=== PATIENT | male | born 1945 | race Caucasian/White ===

== ENCOUNTER 2019-03-13 11:30 | Inpatient (IN) | payer MEDICARE, BC ==
[2019-03-14] MEDS ORDERED: Glycopyrrolate 0.2 MG/ML 5 ML SYRINGE ONE (09:42)
[2019-03-14] MEDS ORDERED: PROPOFOL 200 MG/20 ML VIAL ONE (09:42)
[2019-03-14] MEDS ORDERED: Lidocaine 1% PF 5 ML VIAL ONE (09:42)
[2019-03-14] MEDS ORDERED: Rocuronium Bromide 10 MG/ML (10ML VIAL) ONE (09:42)
[2019-03-14] MEDS ORDERED: ceFAZolin Sodium (SDC) 2 GM/100 ML BAG ONE (10:57)
[2019-03-14] MEDS ORDERED: Fentanyl 100 MCG/2 ML VIAL ONE ×3 (14:02→15:29)
--- NOTE | 2019-03-14 14:34 | RAD ---
INTRAOPERATIVE FLUOROSCOPIC IMAGES LEFT HUMERUS: History: ORIF left humerus. Comparison: None. Fluoroscopy: Total fluoroscopy time is 82.8 seconds with total does of 3.54 mGy*cm^2. FINDINGS\IMPRESSION: Two intraoperative fluoroscopic images of the left humerus are submitted for interpretation. There ar e medial and lateral plates with multiple screws transfixing a comminuted fracture involving the dist al humerus. Subcutaneous emphysema is seen about the elbow. Correlation with intraoperative findings is recommended. POS: [facility]
[2019-03-14] MEDS ORDERED: Milk Of Magnesia 30 ML UDCUP PO PRN (14:51)
[2019-03-14] MEDS ORDERED: HYDROcodone/Acetaminophen 5/325 mg Tablet PO PRN ×2 (14:51)
[2019-03-14] MEDS ORDERED: TETANUS AND DIPHTHERIA TOX/PF 0.5 ML DISP.SYRIN IM SCH (14:51)
[2019-03-14] MEDS ORDERED: Promethazine HCl 25 MG/ML VIAL IM PRN (14:51)
[2019-03-14] MEDS ORDERED: HYDROcodone/Acetaminophen 10/325 mg Tablet PO PRN ×2 (14:51)
[2019-03-14] MEDS ORDERED: Bisacodyl 10 MG SUPP PR PRN (14:51)
[2019-03-14] MEDS ORDERED: Ondansetron PF 4 MG/2 ML Vial IV PRN (14:51)
[2019-03-14] MEDS ORDERED: Fentanyl 100 MCG/2 ML VIAL SLOW IVP PRN (14:51)
[2019-03-14] MEDS ORDERED: traMADol HCl 50 MG TAB PO PRN ×2 (14:51)
[2019-03-14] MEDS ORDERED: Promethazine HCl 25 MG/ML VIAL ONE (15:20)
[2019-03-14] MEDS ORDERED: Ketorolac Tromethamine 30 MG/ML VIAL ONE (15:51)
[2019-03-14] MEDS ORDERED: Labetalol HCl 100 MG/20 ML VIAL ONE (16:23)
[2019-03-14] MEDS ORDERED: hydrALAZINE 20 MG/ML VIAL ONE (16:41)
[2019-03-14] MEDS ORDERED: hydrALAZINE 20 MG/ML VIAL SLOW IVP PRN (17:32)
[2019-03-14] MEDS ORDERED: Labetalol HCl 100 MG/20 ML VIAL IVPB SCH (17:45)
[2019-03-14] MEDS: CEFAZOLIN 2 GM in Premix Bag 1 BAG IVPB SCH (18:31)
[2019-03-14] MEDS: Ketorolac Tromethamine 30 MG/ML VIAL IVP SCH ×2 (18:31→18:33)
[2019-03-14] MEDS: Sodium Chloride 0.9% 1,000 ML IV SCH (19:00)
[2019-03-14 20:14] VITALS: BMI 27.2
[2019-03-14] MEDS: Lisinopril 20 MG TAB PO SCH (22:14)
[2019-03-14] MEDS: Tamsulosin HCl 0.4 MG CAP PO SCH (22:15)
[2019-03-14] MEDS: Donepezil HCl 10 MG TAB PO SCH (22:15)
[2019-03-14] MEDS: Doxycycline 100 MG CAP PO SCH (22:15)
[2019-03-14] MEDS: clonazePAM 1 MG TAB PO SCH (22:16)
[2019-03-14] MEDS: Rosuvastatin 5 MG TAB PO SCH (22:16)
[2019-03-14] MEDS: Rasagiline Mesylate 0.5 MG TAB PO SCH (22:16)
[2019-03-14] MEDS: cycloSPORINE 0.05% Ophthalmic Droperette EA EYE SCH (22:17)
[2019-03-14] MEDS: Insulin Glargine 10 UNITS in Pre-Filled Syringe 1 EACH SC SCH (22:27)
[2019-03-14] MEDS: Carbidopa/Levodopa 25-250 mg Tablet PO SCH (22:51)
[2019-03-14] MEDS: sulfaSALAzine 500 MG TAB PO SCH (22:51)
[2019-03-15] MEDS: Ketorolac Tromethamine 30 MG/ML VIAL IVP SCH ×4 (03:03→17:59)
[2019-03-15] MEDS: CEFAZOLIN 2 GM in Premix Bag 1 BAG IVPB SCH ×3 (03:35→18:00)
[2019-03-15 06:08] LABS: #Lymphocytes 0.7 thou/uL (1.20-3.40); #Monocytes 1.5 thou/uL (0.11-0.59); #Neutrophils 8.4 thou/uL (1.40-6.50); %Basophils 0.1 % (0.0-1.0); %Eosinophils 0.2 % (0.0-10.0); %Lymphocytes 6.5 % (21.0-51.0); %Monocytes 14.4 % (0.0-10.0); %Neutrophils 78.8 % (42.0-75.0); Hemoglobin 11.2 g/dL (14.0-18.0); Mean Corpuscular HGB CONC 32.1 g/dL (32.0-36.0); Mean Corpuscular Hemoglobin 32.6 pg (27.0-31.0); Mean Platelet Volume 6.9 fL (7.4-10.4); Platelet Count 276 thou/uL (130-400); RBC Distribution Width 11.9 % (11.5-14.5); Red Blood Cell (RBC) Count 3.43 mill/uL (4.70-6.10); White Blood Cell (WBC) Count 10.7 thou/uL (4.8-10.8)
[2019-03-15 06:30] LABS: ALT (SGPT) Less than 7 U/L (8-55); AST (SGOT) 23 U/L (5-34); Albumin 3.2 g/dL (3.4-4.8); Alkaline Phosphatase 48 U/L (40-150); Anion Gap 11 mmol/L (10-20); BUN (Urea Nitrogen) 11 mg/dL (8.4-25.7); Bilirubin, Total 0.6 mg/dL (0.2-1.2); Calc. Creatinine Clearance 125 mL/min (70-130); Calcium 8.2 mg/dL (7.8-10.44); Carbon Dioxide 25 mmol/L (23-31); Chloride 101 mmol/L (98-107); Estimated GFR-MDRD Greater than 90; Globulin 2.4 g/dL (2.4-3.5); Glucose 159 mg/dL (83-110); Potassium 3.5 mmol/L (3.5-5.1); Protein, Total 5.6 g/dL (5.8-8.1); Sodium 133 mmol/L (136-145)
[2019-03-15] MEDS: Sodium Chloride 0.9% 1,000 ML IV SCH ×3 (06:38→22:14)
[2019-03-15] MEDS: sulfaSALAzine 500 MG TAB PO SCH ×2 (08:50→20:12)
[2019-03-15] MEDS: Liothyronine Sodium 5 MCG TAB PO SCH ×2 (08:50→11:53)
[2019-03-15] MEDS: Clopidogrel Bisulfate 75 MG TAB PO SCH (08:51)
[2019-03-15] MEDS: Lisinopril 20 MG TAB PO SCH ×2 (08:52→20:14)
[2019-03-15] MEDS: Carbidopa/Levodopa 25-250 mg Tablet PO SCH ×3 (08:53→20:32)
[2019-03-15] MEDS: Carvedilol 6.25 MG TAB PO SCH (08:54)
[2019-03-15] MEDS: Doxycycline 100 MG CAP PO SCH ×2 (08:54→20:11)
[2019-03-15] MEDS: Insulin Glargine 10 UNITS in Pre-Filled Syringe 1 EACH SC SCH ×2 (08:55→22:28)
[2019-03-15] MEDS ORDERED: NEUPRO TOP SCH (09:00)
[2019-03-15] MEDS ORDERED: VICTOZA SC SCH (09:00)
[2019-03-15] MEDS ORDERED: JARDIANCE PO SCH (09:00)
[2019-03-15] MEDS ORDERED: Dextrose 5% in Water 1,000 ML IV PRN (09:55)
[2019-03-15] MEDS ORDERED: HumaLOG 300 UNITS/3 ML VIAL SC PRN (09:55)
[2019-03-15] MEDS ORDERED: Dextrose 50% Abboject 50 ML SYRINGE SLOW IVP PRN (09:55)
--- NOTE | 2019-03-15 11:16 | CON ---
DATE OF CONSULTATION: PRIMARY CARE PHYSICIAN: Dr. Bismark Theodore. REASON FOR CONSULTATION: For the aid in management. REASON FOR ADMISSION: A repair of a left humerus fracture. HISTORY OF PRESENT ILLNESS: Mr. Collins is a pleasant 74-year-old gentleman, who has a history of hypertension and Parkinson disease as well as diabetes and he suffered a fall at home. His daughter is at the bedside and says that he fell backwards onto some flagstone in the yard of his house and fractured his left humerus. He was admitted electively for a surgical repair. Currently, we are seeing him 1 day postop. He says that his arm feels a bit cold and stiff, but other than that the pain is controlled. He denies any other complaints such as chest pain or shortness of breath, but did say that he had some dyspnea after he had the fall. He denies any fevers or chills. No nausea, no vomiting, etc. REVIEW OF SYSTEMS: All systems were reviewed and are negative, except for that mentioned in the history of present illness. PAST MEDICAL HISTORY: Significant for hypertension, Parkinson disease, sleep apnea, cerebrovascular disease, prostate cancer, coronary artery disease, and diabetes mellitus type 2. PAST SURGICAL HISTORY: He has had cataract surgery, compression fracture, L4-L5 disk surgery. Cardiac cath with stents placed. ALLERGIES: CELEBREX. SOCIAL HISTORY: He is a nonsmoker and nondrinker. He uses a walker for mobility. FAMILY HISTORY: No history of any heritable diseases. MEDICATIONS: These are taken from the electronic records and include, 1. Tramadol 50 mg as needed. 2. Flomax 0.4 at bedtime. 3. Sulfasalazine 1000 mg twice daily. 4. Sertraline 50 mg daily. 5. Neupro 6 mg patch daily. 6. Crestor 2.5 mg at bedtime. 7. Restasis eyedrops at bedtime. 8. Azilect 0.5 mg at bedtime. 9. Myrbetriq 50 mg extended release daily. 10. Lisinopril 20 mg twice daily. 11. Victoza 0.6 mg subcu daily. 12. Cytomel 5 mcg p.o. as directed. 13. Imdur 60 mg daily. 14. Levemir 10 units twice a day. 15. Jardiance 25 mg daily. 16. Doxycycline 20 mg q.12. 17. Aricept 10 mg at bedtime. 18. Plavix 75 mg daily. 19. Klonopin 0.5 mg at bedtime. 20. Carvedilol 3.125 mg 2 tablets daily. 21. Carbidopa and levodopa 25/250 two tablets p.o. three times a day. PHYSICAL EXAMINATION: GENERAL: He is alert and oriented. He appears chronically ill, but in no distress. VITAL SIGNS: His blood pressure is 112/69, heart rate is 83, temperature is 98.2, respiratory rate is 20, and O2 saturation is 97% on room air. HEENT: Pupils are equal, round, and reactive. Extraocular muscles are intact. Sclerae anicteric. Throat, no erythema, no exudates. NECK: No adenopathy. No bruits. LUNGS: Clear with the exception of some rales in the right base, but there is no wheezing or rhonchi. CARDIOVASCULAR: He had a normal S1, S2. I did not appreciate an S3 or S4. No murmurs, clicks, or rubs. ABDOMEN: Obese. It is soft, nontender, and nondistended. Positive for bowel sounds. There is no rebound, no guarding, no organomegaly. EXTREMITIES: He has 2+ pitting edema in both lower extremities. There is no calf tenderness. NEUROLOGIC: He is moving all extremities. SKIN AND INTEGUMENT: No skin changes. No rash. LABORATORY RESULTS: The white blood cell count is 10.7, hemoglobin is 11.2, hematocrit is 34.9, and platelet count is 276. Sodium is 133, potassium is 3.5, chloride is 101, CO2 is 25, BUN of 11, creatinine of 0.65, glucose is 159. ASSESSMENT: 1. This is a pleasant 74-year-old gentleman, who is being admitted for an elective left humerus repair. Currently, he is postop and clinically doing well. It was noted that he did have a temperature earlier around midnight of 100.2, and it was also noted he had some rales on exam. I suspect this is due to atelectasis. It is noted that he did not have his incentive spirometer in the room. Therefore, I spoke with the nurse to have it placed in the room since it had already been ordered and gave him instructions on how to use it. We will continue to monitor for any evidence of continued fever. Otherwise, with regard to diabetes, we will continue his insulin as well as a sliding scale. We will hold off on Jardiance at this time, and if he needs any additional coverage, this will be covered with the sliding scale. 2. Coronary artery disease. This appears to be clinically stable. Continue his beta-joyce as well as Plavix and Imdur. 3. Hypertension. Currently, blood pressure is well controlled and again continue his home medications and will also offer medicine for elevated blood pressure. We will be happy to follow along with you. Job ID: [id number]
--- NOTE | 2019-03-15 14:33 | OP ---
DATE OF PROCEDURE: 03/14/2019 PREOPERATIVE DIAGNOSIS: Left distal humerus intercondylar split. POSTOPERATIVE DIAGNOSIS: Left distal humerus intercondylar split. PROCEDURES PERFORMED: 1. Open reduction and internal fixation of left distal humerus fracture intercondylar split. 2. Ulnar nerve transposition. 3. Long-arm splint. COMMUNITY HEALTH NAVIGATOR: Frank Llanos PA-C. ANESTHESIOLOGIST: Dr. Ta. ANESTHESIA: The patient received general endotracheal intubation. ESTIMATED BLOOD LOSS: 150 mL. TOURNIQUET TIME: 115 minutes at 250 mmHg. ANTIBIOTICS: Ancef 2 g. IMPLANTS: Synthes 2.7 x 3.5 VA-LCP extended medial plate and a 2.7x 3.5 VA-LCP lateral distal plate with five 3.5 screws, one 2.7 nonlocker, and six 2.7 nonlockers. COMPLICATIONS: None. HISTORY OF PRESENT ILLNESS: Mr. Collins is a 74-year-old male, status post fall. The patient has a history of hypertension, stroke, diabetes, depression, Parkinson's, neuropathy, and sleep apnea. The patient has had a history of multiple falls. The patient might have indicated for total elbow arthroplasty, given multiple falls, I was concerned that potentially he may lead to have fracture above or below the stem, therefore we elected for open reduction and internal fixation , not desired to do an olecranon osteotomy for creating other fracture planes, potentially for him to breakthrough. I liked to do a medial and lateral column approach with ORIF of distal humerus, possible ulnar nerve transposition. I discussed with the family risks and benefits of surgery, pain, scar, bleeding, infection, damage to vital structures, nonunion, malunion, fracture above or below the stem, failure of procedure, continued pain despite surgical intervention, blood clots, loss of life or limb. I discussed with family that the patient's left arm has limited mobility, given his Parkinson's, he has to use his left arm to stand up as well as a walker to ambulate. Therefore, he likely would need an extended stay in a custodial or rehab facility. They understood the risks and benefits of the procedure, elected to proceed. DESCRIPTION OF PROCEDURE: Time-out was performed designating the patient's left upper extremity as the operative site based on site, consents, and marking. After time-out, the patient's left upper extremity was prepped and draped in sterile fashion. Tourniquet was brought up at 250 mmHg for 115 minutes. We made a posterior incision down, came down to the triceps, developed medial and lateral flaps, found ulnar nerve, which we protected throughout the case. We dissected up the intermuscular septum, came down the medial epicondyle, used cautery to come down and develop a plane onto the condyle for placement of our plate. Moved down the condyle toward the patient's ulnar shaft. We developed a plane under the triceps proximally. We then went laterally, came down on the lateral epicondyle. We developed the plane between the extensor carpi radialis longus and brachialis, along the lateral border, down to the shaft to develop our exposure. We bluntly dissected proximally to keep the radial nerve off the bone for sliding our plates both medially and laterally. After exposing this and completing it, we looked under AP and lateral radiographs. Tried to clamp across to get a compression across the distal fragment, but we were unsuccessful, therefore used a medial column, which was the most intact piece and utilized that as our border, we sewed a plate medially using K-wires distally and a screw proximally to hold it into position, placed a locking screw to hold into position to keep that piece as our stabilized column. We then went laterally. We clamped and reduced under fluoroscopic guidance as well as under the later fragment to kind of clamp the two pieces together with some slight diastasis of the fracture alignment of the joint line, but I felt that we had overall good clinical alignment on AP and lateral radiographs We placed a lateral plate, clamped plate across, we placed 3.5 screws, two proximally. I then used two K-wires distally and followed by three 2.7 locking screws, longest screw possible through the entire spanning of three fragments of distal humerus. After completing this, we put two more 3.5 screws proximally, drilling bi-cortically for a total of six on the lateral border. We then moved medially, removed our first screw that we placed obliquely up into the fragment, placing three screws from lateral to medial incorporating majority of both segments, one of our screws which was slightly long, might have been in the joint. Therefore, I elected to remove and downsize by 6 mm. Before this, we had placed one more 3.5 screw proximally and a 2.7 non-locker in the shaft for total of three above and three below. [place] we had overall good interdigitation. Good reduction on AP and lateral planes. We washed. We took the ulnar nerve which was gonna sit on the medial plate, did not like its position. Therefore, we transposed it anteriorly , used the fascia to sew to the plate and keep it off the plate anteriorly, not tenting as it in high flexion to check position. We then closed in a lateral fashion over the plate. We washed, closed a subcutaneous layer with 0, 2-0, and paulette. The patient will bet in a sling for 2 weeks. He will begin elbow range of motion at that time. The patient's outlook is guarded. I am concerned about his mobility without the use of his left arm as well as potential risk for multiple falls and destruction of this fracture. The patient and family understand these risks and benefits, will be admitted to the hospital. Job ID: [id number] MTDD
[2019-03-15] MEDS ORDERED: Lorazepam 0.5 MG TAB PO PRN (15:34)
[2019-03-15] MEDS: clonazePAM 1 MG TAB PO SCH (19:46)
[2019-03-15] MEDS: Tamsulosin HCl 0.4 MG CAP PO SCH (20:10)
[2019-03-15] MEDS: Rosuvastatin 5 MG TAB PO SCH (20:11)
[2019-03-15] MEDS: Donepezil HCl 10 MG TAB PO SCH (20:12)
[2019-03-15] MEDS: Rasagiline Mesylate 0.5 MG TAB PO SCH (20:32)
[2019-03-15] MEDS: cycloSPORINE 0.05% Ophthalmic Droperette EA EYE SCH (20:32)
[2019-03-15] MEDS: Lorazepam 2 MG/ML VIAL SLOW IVP PRN (22:21)
[2019-03-16] MEDS: Lisinopril 20 MG TAB PO SCH ×2 (09:48→20:40)
[2019-03-16] MEDS: Carvedilol 6.25 MG TAB PO SCH (09:49)
[2019-03-16] MEDS: Clopidogrel Bisulfate 75 MG TAB PO SCH (09:49)
[2019-03-16] MEDS: Liothyronine Sodium 5 MCG TAB PO SCH ×2 (09:50→12:26)
[2019-03-16] MEDS: Carbidopa/Levodopa 25-250 mg Tablet PO SCH ×2 (09:54→15:59)
[2019-03-16] MEDS: Doxycycline 100 MG CAP PO SCH ×2 (09:56→20:39)
[2019-03-16] MEDS: Insulin Glargine 10 UNITS in Pre-Filled Syringe 1 EACH SC SCH ×2 (09:57→21:23)
[2019-03-16] MEDS: sulfaSALAzine 500 MG TAB PO SCH ×2 (12:26→21:22)
[2019-03-16] MEDS: Sodium Chloride 0.9% 1,000 ML IV SCH ×2 (17:35→17:36)
--- NOTE | 2019-03-16 17:44 | PDOC.HOSPP ---
- Subjective Encounter Date: 03/16/19 Encounter Time: 17:43 Subjective: Mr. Collins was seen today in follow-up of medical management post left humerus fracture repair. He was agitated last night, and up most of the night. Now he is very somnolent, but he will awaken when prompted. - Objective Vital Signs & Weight: Vital Signs (12 hours) Temp Pulse Resp BP BP Pulse Ox 03/16/19 15:33 98.7 F 79 16 118/70 98 03/16/19 12:00 98.6 F 81 20 112/69 91 L 03/16/19 09:49 158/97 H 03/16/19 09:48 158/97 H 03/16/19 08:11 99.1 F 90 20 158/97 H 91 L Weight Weight 201 lb I&O: 03/15/19 03/16/19 03/17/19 06:59 06:59 06:59 Intake Total 1440 2570 Output Total 400 100 Balance 1040 2470 Result Diagrams: 03/15/19 05:58 03/15/19 05:58 Additional Labs: Accuchecks 03/16/19 03/16/19 03/16/19 15:37 11:17 05:46 POC Glucose 217 H 133 H 117 H 03/15/19 20:55 POC Glucose 183 H ROS - Medication Medications: Active Medications Generic Name Dose Route Start Last Admin Trade Name Freq PRN Reason Stop Dose Admin Hydrocodone Bitart/Acetaminophen 2 tab 03/14/19 14:51 03/14/19 22:50 [place] 5/325 PO 2 tab Q4H PRN Administration Severe Pain (7-10) Carbidopa/Levodopa 2 tab 03/14/19 21:00 03/16/19 15:59 Sinemet 25-250 PO 2 tab TID PITO Administration Carvedilol 6.25 mg 03/15/19 09:00 03/16/19 09:49 Coreg PO 6.25 mg DAILY PITO Administration Clonazepam 1 mg 03/14/19 21:00 03/15/19 19:46 Klonopin PO 1 mg HS PITO Administration Clopidogrel Bisulfate 75 mg 03/15/19 09:00 03/16/19 09:49 Plavix PO 75 mg DAILY PITO Administration Cyclosporine 0 ml 03/14/19 21:00 03/15/19 20:32 Restasis EA EYE 0.4 ml HS PITO Administration Donepezil HCl 10 mg 03/14/19 21:00 03/15/19 20:12 Aricept PO 10 mg HS PITO Administration Doxycycline Hyclate 100 mg 03/14/19 21:00 03/16/19 09:56 Vibramycin PO 100 mg BID PITO Administration Sodium Chloride 1,000 mls @ 100 mls/hr 03/14/19 14:51 03/16/19 17:36 Normal Saline 0.9% IV Not Given .Q10H PITO Insulin Glargine 10 units/ 0.1 mls @ 0 mls/hr 03/14/19 21:00 03/16/19 09:57 Miscellaneous Medication SC 0.1 mls BID PITO Administration Isosorbide Mononitrate 60 mg 03/15/19 09:00 03/16/19 09:56 Imdur PO 60 mg DAILY PITO Administration Liothyronine Sodium 5 mcg 03/15/19 09:00 03/16/19 12:26 Cytomel PO 5 mcg 0900,1200 PITO Administration Lisinopril 20 mg 03/14/19 21:00 03/16/19 09:48 Zestril PO 20 mg BID PITO Administration Lorazepam 0.5 mg 03/15/19 15:34 03/15/19 22:21 Ativan SLOW IVP 0.5 mg Q6H PRN Administration Anxiety/Agitation Mirabegron 50 mg 03/15/19 09:00 03/16/19 09:54 Myrbetriq Er PO 50 mg DAILY PITO Administration Rasagiline 0.5 mg 03/14/19 21:00 03/15/19 20:32 Azilect PO 0.5 mg HS PITO Administration Rosuvastatin Calcium 2.5 mg 03/14/19 21:00 03/15/19 20:11 Crestor PO 2.5 mg HS PITO Administration Sertraline HCl 50 mg 03/15/19 09:00 03/16/19 09:48 Zoloft PO 50 mg DAILY PITO Administration Sulfasalazine 1,000 mg 03/14/19 21:00 03/16/19 12:26 Azulfidine PO 1,000 mg BID PITO Administration Tamsulosin HCl 0.4 mg 03/14/19 21:00 03/15/19 20:10 Flomax PO 0.4 mg HS PITO Administration Tramadol HCl 50 mg 03/14/19 14:51 03/15/19 20:10 Ultram PO 50 mg Q6H PRN Administration Mild Pain (1-3) - Exam Eye: PERRL, anicteric sclera Heart: RRR, no murmur, no gallops, no rubs Respiratory: CTAB (with an occasional rhonchi and coarse breath sounds) Gastrointestinal: soft, non-tender, non-distended, normal bowel sounds, no palpable masses, no hepatomegaly, no splenomegaly Extremities: no cyanosis, no clubbing, 1+ LE edema Neurological: CN's grossly intact, no new deficit Hosp A/P (1) Metabolic encephalopathy Code(s): G93.41 - METABOLIC ENCEPHALOPATHY Status: Acute (2) Parkinson disease Code(s): G20 - PARKINSON'S DISEASE Status: Chronic (3) Hypertension Code(s): I10 - ESSENTIAL (PRIMARY) HYPERTENSION Status: Chronic (4) Cerebral vascular disease Code(s): I67.9 - CEREBROVASCULAR DISEASE, UNSPECIFIED Status: Chronic (5) Diabetes mellitus type 2 in obese Code(s): E11.69 - TYPE 2 DIABETES MELLITUS WITH OTHER SPECIFIED COMPLICATION; E66.9 - OBESITY, UNSPECIFIED Status: Chronic (6) Sleep apnea Code(s): G47.30 - SLEEP APNEA, UNSPECIFIED Status: Chronic - Plan * Metabolic encephalopathy- this is likely due to sleep deprivation, and medications ( ativan). Will need to reduce sedating medications when possible * Parkinson's disease- will re-start Sinemet * HTN- blood pressure- stable * DM- blood glucose is stable * PT as per Orthopedics
[2019-03-16] MEDS: HumaLOG 300 UNITS/3 ML VIAL SC PRN (18:35)
[2019-03-16] MEDS: Rosuvastatin 5 MG TAB PO SCH (20:39)
[2019-03-16] MEDS: clonazePAM 1 MG TAB PO SCH (20:39)
[2019-03-16] MEDS: Donepezil HCl 10 MG TAB PO SCH (20:40)
[2019-03-16] MEDS: cycloSPORINE 0.05% Ophthalmic Droperette EA EYE SCH (20:40)
[2019-03-16] MEDS: Tamsulosin HCl 0.4 MG CAP PO SCH (20:40)
[2019-03-16] MEDS: Acetaminophen 500 MG TAB PO PRN (20:40)
[2019-03-16] MEDS ORDERED: Carbidopa/Levodopa 25-100 mg Tablet PO SCH (21:00)
[2019-03-16] MEDS ORDERED: Carbidopa/Levodopa 25-250 mg Tablet PO SCH (21:00)
[2019-03-16] MEDS: Carbidopa/Levodopa 25-100 mg Tablet PO SCH (21:23)
[2019-03-16] MEDS: Rasagiline Mesylate 0.5 MG TAB PO SCH (21:23)
[2019-03-17] MEDS: Sodium Chloride 0.9% 1,000 ML IV SCH ×2 (02:25→16:54)
[2019-03-17] MEDS: Carbidopa/Levodopa 25-100 mg Tablet PO SCH ×3 (09:38→21:49)
[2019-03-17] MEDS: Carvedilol 6.25 MG TAB PO SCH (09:39)
[2019-03-17] MEDS: Clopidogrel Bisulfate 75 MG TAB PO SCH (09:39)
[2019-03-17] MEDS ORDERED: BIOTENE MOUTH SPRAY 44.3 ML PO PRN (09:40)
[2019-03-17] MEDS: Lisinopril 20 MG TAB PO SCH ×2 (09:40→21:48)
[2019-03-17] MEDS: Liothyronine Sodium 5 MCG TAB PO SCH ×2 (09:40→12:19)
[2019-03-17] MEDS: Insulin Glargine 10 UNITS in Pre-Filled Syringe 1 EACH SC SCH ×2 (09:41→21:51)
[2019-03-17] MEDS: Doxycycline 100 MG CAP PO SCH ×2 (09:41→21:47)
[2019-03-17] MEDS: sulfaSALAzine 500 MG TAB PO SCH ×2 (10:55→21:48)
[2019-03-17] MEDS: HumaLOG 300 UNITS/3 ML VIAL SC PRN (13:58)
--- NOTE | 2019-03-17 13:59 | PDOC.HOSPP ---
- Subjective Encounter Date: 03/17/19 Encounter Time: 13:57 Subjective: Mr. Collins was seen today in follow-up regarding medical management. He rested better last night. He is much more awake and alert t his morning. - Objective Vital Signs & Weight: Vital Signs (12 hours) Temp Pulse Resp BP BP Pulse Ox 03/17/19 12:23 97.9 F 83 20 124/78 97 03/17/19 09:40 125/78 03/17/19 09:39 125/78 03/17/19 08:00 18 L 03/17/19 07:34 97.3 F L 71 18 125/78 97 03/17/19 04:18 98.1 F 70 16 126/78 95 Weight Weight 201 lb I&O: 03/16/19 03/17/19 03/18/19 06:59 06:59 06:59 Intake Total 2570 120 Output Total 100 Balance 2470 120 Result Diagrams: 03/15/19 05:58 03/15/19 05:58 Additional Labs: Accuchecks 03/17/19 03/17/19 03/16/19 11:47 06:00 20:31 POC Glucose 166 H 120 H 166 H 03/16/19 15:37 POC Glucose 217 H ROS - Medication Medications: Active Medications Generic Name Dose Route Start Last Admin Trade Name Freq PRN Reason Stop Dose Admin Acetaminophen 1,000 mg 03/16/19 17:46 03/16/19 20:40 Tylenol PO 1,000 mg Q6H PRN Administration Headache/Fever or Pain Hydrocodone Bitart/Acetaminophen 2 tab 03/14/19 14:51 03/14/19 22:50 [place] 5/325 PO 2 tab Q4H PRN Administration Severe Pain (7-10) Carbidopa/Levodopa 2 tab 03/16/19 21:00 03/17/19 09:38 Sinemet 25-100 PO 2 tab TID PITO Administration Carvedilol 6.25 mg 03/15/19 09:00 03/17/19 09:39 Coreg PO 6.25 mg DAILY PITO Administration Clopidogrel Bisulfate 75 mg 03/15/19 09:00 03/17/19 09:39 Plavix PO 75 mg DAILY PITO Administration Cyclosporine 0 ml 03/14/19 21:00 03/16/19 20:40 Restasis EA EYE 0.4 ml HS PITO Administration Donepezil HCl 10 mg 03/14/19 21:00 03/16/19 20:40 Aricept PO 10 mg HS PITO Administration Doxycycline Hyclate 100 mg 03/14/19 21:00 03/17/19 09:41 Vibramycin PO 100 mg BID PITO Administration Sodium Chloride 1,000 mls @ 100 mls/hr 03/14/19 14:51 03/17/19 02:25 Normal Saline 0.9% IV Not Given .Q10H PITO Insulin Glargine 10 units/ 0.1 mls @ 0 mls/hr 03/14/19 21:00 03/17/19 09:41 Miscellaneous Medication SC 0.1 mls BID PITO Administration Insulin Human Lispro 0 units 03/15/19 09:55 03/16/19 18:35 Humalog SC 4 unit .MODERATE SLIDING SC PRN Administration Moderate [place]al Scale Isosorbide Mononitrate 60 mg 03/15/19 09:00 03/17/19 09:40 Imdur PO 60 mg DAILY PITO Administration Liothyronine Sodium 5 mcg 03/15/19 09:00 03/17/19 12:19 Cytomel PO 5 mcg 0900,1200 PITO Administration Lisinopril 20 mg 03/14/19 21:00 03/17/19 09:40 Zestril PO 20 mg BID PITO Administration Lorazepam 0.5 mg 03/15/19 15:34 03/15/19 22:21 Ativan SLOW IVP 0.5 mg Q6H PRN Administration Anxiety/Agitation Mirabegron 50 mg 03/15/19 09:00 03/17/19 09:41 Myrbetriq Er PO 50 mg DAILY PITO Administration Rasagiline 0.5 mg 03/14/19 21:00 03/16/19 21:23 Azilect PO 0.5 mg HS PITO Administration Rosuvastatin Calcium 2.5 mg 03/14/19 21:00 03/16/19 20:39 Crestor PO 2.5 mg HS PITO Administration Sertraline HCl 50 mg 03/15/19 09:00 03/17/19 09:40 Zoloft PO 50 mg DAILY PITO Administration Sulfasalazine 1,000 mg 03/14/19 21:00 03/17/19 10:55 Azulfidine PO 1,000 mg BID PITO Administration Tamsulosin HCl 0.4 mg 03/14/19 21:00 03/16/19 20:40 Flomax PO 0.4 mg HS PITO Administration Tramadol HCl 50 mg 03/14/19 14:51 03/15/19 20:10 Ultram PO 50 mg Q6H PRN Administration Mild Pain (1-3) - Exam Eye: PERRL, anicteric sclera Heart: RRR, no murmur, no gallops, no rubs, normal peripheral pulses Respiratory: CTAB, no wheezes, no rales, no ronchi, normal chest expansion, no tachypnea Gastrointestinal: soft, non-tender, non-distended, normal bowel sounds, no palpable masses, no hepatomegaly Extremities: no cyanosis, no clubbing, 1+ LE edema Skin: normal turgor, no lesions, no rashes Hosp A/P (1) Metabolic encephalopathy Code(s): G93.41 - METABOLIC ENCEPHALOPATHY Status: Acute (2) Parkinson disease Code(s): G20 - PARKINSON'S DISEASE Status: Chronic (3) Hypertension Code(s): I10 - ESSENTIAL (PRIMARY) HYPERTENSION Status: Chronic (4) Cerebral vascular disease Code(s): I67.9 - CEREBROVASCULAR DISEASE, UNSPECIFIED Status: Chronic (5) Diabetes mellitus type 2 in obese Code(s): E11.69 - TYPE 2 DIABETES MELLITUS WITH OTHER SPECIFIED COMPLICATION; E66.9 - OBESITY, UNSPECIFIED Status: Chronic (6) Sleep apnea Code(s): G47.30 - SLEEP APNEA, UNSPECIFIED Status: Chronic - Plan * Metabolic encephalopathy- Much improved * Parkinson's disease- Sinemet at his correct home dose has been re-started * HTN- blood pressure- stable * DM- blood glucose is stable * Disposition as per Orthopedic
[2019-03-17] MEDS: Acetaminophen 500 MG TAB PO PRN (16:46)
[2019-03-17] MEDS ORDERED: clonazePAM 1 MG TAB PO SCH (21:00)
[2019-03-17] MEDS: Donepezil HCl 10 MG TAB PO SCH (21:48)
[2019-03-17] MEDS: Tamsulosin HCl 0.4 MG CAP PO SCH (21:48)
[2019-03-17] MEDS: Rasagiline Mesylate 0.5 MG TAB PO SCH (21:48)
[2019-03-17] MEDS: Rosuvastatin 5 MG TAB PO SCH (21:48)
[2019-03-17] MEDS: cycloSPORINE 0.05% Ophthalmic Droperette EA EYE SCH (21:50)
[2019-03-18] MEDS: Sodium Chloride 0.9% 1,000 ML IV SCH ×2 (04:09→09:26)
[2019-03-18] MEDS: Lorazepam 2 MG/ML VIAL SLOW IVP PRN (04:49)
--- NOTE | 2019-03-18 08:02 | RAD ---
XR Elbow Lt 2 View: 03/18/2019 7:39 AM CLINICAL INDICATION: History of fall, pain COMPARISON: Fluoroscopic images 03/14/2019 FINDINGS: Fixated fracture of the distal humerus with similar alignment to prior images. Postoperative splint and skin paulette are present, posteriorly. IMPRESSION: Plate and screw fixation of medial and lateral aspects of distal humerus redemonstrated. Fracture khang ency does persist, with similar alignment to images from 03/14/2019.
[2019-03-18] MEDS: sulfaSALAzine 500 MG TAB PO SCH (09:17)
[2019-03-18] MEDS: Doxycycline 100 MG CAP PO SCH (09:18)
[2019-03-18] MEDS: Carbidopa/Levodopa 25-100 mg Tablet PO SCH (09:18)
[2019-03-18] MEDS: Lisinopril 20 MG TAB PO SCH (09:18)
[2019-03-18] MEDS: Liothyronine Sodium 5 MCG TAB PO SCH ×2 (09:26→11:56)
[2019-03-18] MEDS: Carvedilol 6.25 MG TAB PO SCH (09:26)
[2019-03-18] MEDS: Clopidogrel Bisulfate 75 MG TAB PO SCH (09:26)
[2019-03-18] MEDS: Insulin Glargine 10 UNITS in Pre-Filled Syringe 1 EACH SC SCH (09:26)
[2019-03-18 09:46] LABS: #Eosinphils 0.3 thou/uL (0.0-0.7); #Lymphocytes 0.7 thou/uL (1.20-3.40); #Monocytes 1.1 thou/uL (0.11-0.59); #Neutrophils 7.3 thou/uL (1.40-6.50); %Basophils 0.2 % (0.0-1.0); %Eosinophils 2.7 % (0.0-10.0); %Lymphocytes 7.2 % (21.0-51.0); %Monocytes 11.6 % (0.0-10.0); %Neutrophils 78.2 % (42.0-75.0); Hemoglobin 10.7 g/dL (14.0-18.0); Mean Corpuscular HGB CONC 32.9 g/dL (32.0-36.0); Mean Corpuscular Hemoglobin 33.3 pg (27.0-31.0); Mean Platelet Volume 6.7 fL (7.4-10.4); Platelet Count 326 thou/uL (130-400); RBC Distribution Width 11.8 % (11.5-14.5); Red Blood Cell (RBC) Count 3.21 mill/uL (4.70-6.10); White Blood Cell (WBC) Count 9.3 thou/uL (4.8-10.8)
[2019-03-18 10:05] LABS: Anion Gap 10 mmol/L (10-20); BUN (Urea Nitrogen) 17 mg/dL (8.4-25.7); Calc. Creatinine Clearance 133 mL/min (70-130); Calcium 8.6 mg/dL (7.8-10.44); Carbon Dioxide 26 mmol/L (23-31); Chloride 105 mmol/L (98-107); Estimated GFR-MDRD Greater than 90; Glucose 141 mg/dL (83-110); Potassium 3.6 mmol/L (3.5-5.1); Sodium 137 mmol/L (136-145)
[2019-03-18 15:00] VITALS: BP 132/80; TEMP 97.6
--- NOTE | 2019-03-18 17:15 | PDOC.HOSPP ---
- Subjective Encounter Date: 03/18/19 Encounter Time: 10:00 Subjective: Mr. Collins was seen today in follow-up for medical management. He is looking better today. He tells me he feels tired. - Objective Vital Signs & Weight: Vital Signs (12 hours) Temp Temp Pulse Pulse Resp Resp BP 03/18/19 14:57 97.6 F 67 18 03/18/19 11:30 98.6 F 73 20 03/18/19 09:26 125/78 03/18/19 09:18 125/78 03/18/19 07:20 98.4 F 73 18 03/18/19 06:43 97.9 F 77 20 BP BP Pulse Ox Pulse Ox 03/18/19 14:57 132/80 93 L 03/18/19 11:30 114/71 93 L 03/18/19 09:26 03/18/19 09:18 03/18/19 07:20 144/78 H 93 L 03/18/19 06:43 151/82 H 100 Weight Weight 201 lb I&O: 03/17/19 03/18/19 03/19/19 06:59 06:59 06:59 Intake Total 120 1190 Balance 120 1190 Result Diagrams: 03/18/19 09:38 03/18/19 09:38 Additional Labs: Accuchecks 03/18/19 03/18/19 03/18/19 15:45 11:29 05:42 POC Glucose 144 H 129 H 108 03/17/19 20:24 POC Glucose 177 H ROS - Medication Medications: Active Medications Generic Name Dose Route Start Last Admin Trade Name Oliva PRN Reason Stop Dose Admin Acetaminophen 1,000 mg 03/16/19 17:46 03/17/19 16:46 Tylenol PO 1,000 mg Q6H PRN Administration Headache/Fever or Pain Hydrocodone Bitart/Acetaminophen 2 tab 03/14/19 14:51 03/14/19 22:50 [place] 5/325 PO 2 tab Q4H PRN Administration Severe Pain (7-10) Carbidopa/Levodopa 2 tab 03/16/19 21:00 03/18/19 09:18 Sinemet 25-100 PO 2 tab TID PITO Administration Carvedilol 6.25 mg 03/15/19 09:00 03/18/19 09:26 Coreg PO 6.25 mg DAILY PITO Administration Clonazepam 0.5 mg 03/17/19 21:00 03/17/19 21:49 Klonopin PO 0.5 mg HS PITO Administration Clopidogrel Bisulfate 75 mg 03/15/19 09:00 03/18/19 09:26 Plavix PO 75 mg DAILY PITO Administration Cyclosporine 0 ml 03/14/19 21:00 03/17/19 21:50 Restasis EA EYE 0.4 ml HS PITO Administration Donepezil HCl 10 mg 03/14/19 21:00 03/17/19 21:48 Aricept PO 10 mg HS PITO Administration Doxycycline Hyclate 100 mg 03/14/19 21:00 03/18/19 09:18 Vibramycin PO 100 mg BID PITO Administration Sodium Chloride 1,000 mls @ 100 mls/hr 03/14/19 14:51 03/18/19 09:26 Normal Saline 0.9% IV Not Given .Q10H PITO Insulin Glargine 10 units/ 0.1 mls @ 0 mls/hr 03/14/19 21:00 03/18/19 09:26 Miscellaneous Medication SC 0.1 mls BID PITO Administration Insulin Human Lispro 0 units 03/15/19 09:55 03/17/19 13:58 Humalog SC 2 unit .MODERATE SLIDING SC PRN Administration Moderate Correctional Scale Isosorbide Mononitrate 60 mg 03/15/19 09:00 03/18/19 09:18 Imdur PO 60 mg DAILY PITO Administration Liothyronine Sodium 5 mcg 03/15/19 09:00 03/18/19 11:56 Cytomel PO 5 mcg 0900,1200 PITO Administration Lisinopril 20 mg 03/14/19 21:00 03/18/19 09:18 Zestril PO 20 mg BID PITO Administration Lorazepam 0.5 mg 03/15/19 15:34 03/18/19 04:49 Ativan SLOW IVP 0.5 mg Q6H PRN Administration Anxiety/Agitation Lorazepam 0.5 mg 03/15/19 15:34 03/17/19 18:11 Ativan PO 0.5 mg Q4H PRN Administration Anxiety Mirabegron 50 mg 03/15/19 09:00 03/18/19 09:18 Myrbetriq Er PO 50 mg DAILY PITO Administration Rasagiline 0.5 mg 03/14/19 21:00 03/17/19 21:48 Azilect PO 0.5 mg HS PITO Administration Rosuvastatin Calcium 2.5 mg 03/14/19 21:00 03/17/19 21:48 Crestor PO 2.5 mg HS PITO Administration Sertraline HCl 50 mg 03/15/19 09:00 03/18/19 09:18 Zoloft PO 50 mg DAILY PITO Administration Sulfasalazine 1,000 mg 03/14/19 21:00 03/18/19 09:17 Azulfidine PO 1,000 mg BID PITO Administration Tamsulosin HCl 0.4 mg 03/14/19 21:00 03/17/19 21:48 Flomax PO 0.4 mg HS PITO Administration Tramadol HCl 50 mg 03/14/19 14:51 03/15/19 20:10 Ultram PO 50 mg Q6H PRN Administration Mild Pain (1-3) - Exam Eye: PERRL, anicteric sclera Heart: RRR, no murmur, no gallops, no rubs, normal peripheral pulses Gastrointestinal: soft, non-tender, non-distended, normal bowel sounds, no palpable masses, no hepatomegaly, no splenomegaly Extremities: no cyanosis, no clubbing, no edema Hosp A/P (1) Metabolic encephalopathy Code(s): G93.41 - METABOLIC ENCEPHALOPATHY Status: Acute (2) Parkinson disease Code(s): G20 - PARKINSON'S DISEASE Status: Chronic (3) Hypertension Code(s): I10 - ESSENTIAL (PRIMARY) HYPERTENSION Status: Chronic (4) Cerebral vascular disease Code(s): I67.9 - CEREBROVASCULAR DISEASE, UNSPECIFIED Status: Chronic (5) Diabetes mellitus type 2 in obese Code(s): E11.69 - TYPE 2 DIABETES MELLITUS WITH OTHER SPECIFIED COMPLICATION; E66.9 - OBESITY, UNSPECIFIED Status: Chronic (6) Sleep apnea Code(s): G47.30 - SLEEP APNEA, UNSPECIFIED Status: Chronic - Plan * Metabolic encephalopathy- resolved * Parkinson's disease- stable * HTN- blood pressure- stable * DM- blood glucose is stable * Possible discharge home today
--- NOTE | 2019-03-19 02:02 | DIS ---
DATE OF ADMISSION: 03/14/2019 DATE OF DISCHARGE: 03/18/2019 DISCHARGE DISPOSITION: Home. PRIMARY DISCHARGE DIAGNOSES: 1. Parkinson disease. 2. Metabolic encephalopathy, resolved. 3. Diabetes mellitus, type 2. 4. Hypertension. 5. Left distal humerus fracture, status post repair. DISCHARGE MEDICATIONS: 1. Tramadol 50 mg p.o. as directed. 2. Flomax 0.4 mg at bedtime. 3. Sulfasalazine 1000 mg twice a day. 4. Sertraline 50 mg q.a.m. 5. Crestor 2.5 mg at bedtime. 6. Restasis eyedrops at bedtime. 7. Azilect one tablet at bedtime. 8. Myrbetriq 50 mg extended release daily. 9. Lisinopril 20 mg twice daily. 10. Victoza 0.6 mg subcu q.a.m. 11. Cytomel 5 mcg as directed. 12. Imdur 60 mg daily. 13. Levemir insulin 10 units twice a day. 14. Jardiance 25 mg daily. 15. Aricept 10 mg at bedtime. 16. Plavix 75 mg daily. 17. Carvedilol 3.125 mg once a day. 18. Carbidopa levodopa 25/100, two tablets p.o. 3 times a day. PROCEDURES DONE DURING THE ADMISSION: The patient had an open reduction and internal fixation of the left distal humerus. CODE STATUS: Full code. ALLERGIES: TO CELEBREX, HYDROCODONE, AND TRAMADOL. HOSPITAL COURSE: Mr. Collins is a pleasant 74-year-old gentleman, who was admitted to the hospital for an elective left distal humerus fracture repair. The hospitalist service was consulted to molding machine operator helper in medical management. He has a history of hypertension and diabetes as well as Parkinson disease, all of which remained stable during his hospital stay. He had a brief episode of metabolic encephalopathy likely due to sundowning and sleep deprivation, which resolved quickly after the withdrawal of sedating medications for pain. Otherwise, he had an uneventful postoperative course and was subsequently discharged home in stable condition on 03/18/2019. Job ID: [id number]
== END 2019-03-18 16:55 | DRG 492 ==
LOC: SURG A 03-14 10:29 → SURG B 03-14 17:39
PROVIDERS: ADMIT Orthopaedic Surgery; ATTEND Orthopaedic Surgery
PROC: 0PSG04Z Reposition Left Humeral Shaft with Internal Fixation Device, Open Approach (ICD-10-PCS; principal; 2019-03-14)
PROC: 01S40ZZ Reposition Ulnar Nerve, Open Approach (ICD-10-PCS; 2019-03-14)
DX: S42.492A Other displaced fracture of lower end of left humerus, initial encounter for closed fracture (principal); G93.41 Metabolic encephalopathy; E11.9 Type 2 diabetes mellitus without complications; I10 Essential (primary) hypertension; G20 Parkinson's disease; G47.33 Obstructive sleep apnea (adult) (pediatric); I25.10 Atherosclerotic heart disease of native coronary artery without angina pectoris; E11.69 Type 2 diabetes mellitus with other specified complication; E11.40 Type 2 diabetes mellitus with diabetic neuropathy, unspecified; E66.9 Obesity, unspecified; Z68.27 Body mass index [BMI] 27.0-27.9, adult; F32.9 Major depressive disorder, single episode, unspecified; W18.30XA Fall on same level, unspecified, initial encounter; Z88.8 Allergy status to other drugs, medicaments and biological substances; Z79.899 Other long term (current) drug therapy; Z86.73 Personal history of transient ischemic attack (TIA), and cerebral infarction without residual deficits; Z85.46 Personal history of malignant neoplasm of prostate; Z79.02 Long term (current) use of antithrombotics/antiplatelets; Y92.007 Garden or yard of unspecified non-institutional (private) residence as the place of occurrence of the external cause
CPT/HCPCS: 36415; 36416; 76000; 80048; 80053; 82947; 85025; 85610; 93005; 93010; C1713; J0360; J0690; J1815; J1885; J2060; J2550; J3010

== ENCOUNTER 2019-03-13 11:55 | Outpatient (CLI) | payer MEDICARE, BC ==
[2019-03-13 13:25] LABS: #Eosinphils 0.2 thou/uL (0.0-0.7); #Lymphocytes 0.6 thou/uL (1.20-3.40); #Monocytes 1.1 thou/uL (0.11-0.59); #Neutrophils 8.5 thou/uL (1.40-6.50); %Basophils 0.1 % (0.0-1.0); %Eosinophils 1.9 % (0.0-10.0); %Monocytes 10.3 % (0.0-10.0); %Neutrophils 81.7 % (42.0-75.0); Hemoglobin 11.9 g/dL (14.0-18.0); Mean Corpuscular HGB CONC 33.7 g/dL (32.0-36.0); Mean Platelet Volume 7.1 fL (7.4-10.4); Platelet Count 261 thou/uL (130-400); Red Blood Cell (RBC) Count 3.41 mill/uL (4.70-6.10); White Blood Cell (WBC) Count 10.4 thou/uL (4.8-10.8)
[2019-03-13 13:32] LABS: INR-International Normal Ratio 1.1; Prothrombin Time 13.8 SEC (12.0-14.7)
[2019-03-13 13:47] LABS: Anion Gap 12 mmol/L (10-20); BUN (Urea Nitrogen) 16 mg/dL (8.4-25.7); Calc. Creatinine Clearance 0 mL/min (70-130); Calcium 9.5 mg/dL (7.8-10.44); Carbon Dioxide 28 mmol/L (23-31); Chloride 104 mmol/L (98-107); Estimated GFR-MDRD Greater than 90; Glucose 146 mg/dL (83-110); Potassium 4.4 mmol/L (3.5-5.1); Sodium 140 mmol/L (136-145)
== END 2019-03-13 11:56 | disposition home or self-care (01) ==
LOC: LABBT 11:55
PROVIDERS: ATTEND Orthopaedic Surgery
DX: Z01.818 Encounter for other preprocedural examination (principal); S42.402A Unspecified fracture of lower end of left humerus, initial encounter for closed fracture
CPT/HCPCS: 80048; 85025; 85610; 93005; 93010